=== PATIENT | female | born 1980 | race Caucasian/White ===

== ENCOUNTER 2019-04-30 12:11 | Inpatient (IN) | payer BC, MEDICAID ==
[~2019-04-30] VITALS: Ht 170.2 cm; Wt 82.3 kg
[2019-05-01] VITALS (42 sets, daily range): BP systolic 96–144; BP diastolic 54–94; PULSE 57–105; TEMP 97.9–98.9
--- NOTE | 2019-05-01 07:35 | NUR ---
Patient ambulates to LR5 with spouse, changed into gown, FHR/TOCO moniotors placed and explained. Patient denies any regular contractions/leaking of fluid/vaginal bleeding/decreased movement. Plan of care discussed and questions answered. 0745: IV started in left upper arm, blood obtained and to lab, LR infusing. Assessment/consents/ packet gone over and done. 0754: Pitocin induction discussed and patient agrees to plan. Pitocin started at 2mU per protocol.
[2019-05-01] MEDS ORDERED: PRENATAL TABLET PO (08:02)
[2019-05-01] MEDS ORDERED: PEPCID 20MG TAB20 MG PO (08:03)
[2019-05-01] MEDS ORDERED: TUMS ULTRA ST1000 MG PO (08:03)
[2019-05-01 08:39] LABS: BASO % 0.3 % (0.0-2.0); EOS # 0.2 (0.0-0.7); EOS % 2.8 % (0-4.0); GRAN % 65.2 % (42.2-75.2); HEMOGLOBIN 11.4 g/dl (12.5-16.0); LYMPH # 1.5 (1.2-3.4); LYMPH % 19.3 % (20.0-51.0); MEAN CELL VOLUME 86 fl (80.0-100.0); MEAN CORPUSCULAR HEMOGLOBIN 29 pg (27.0-31.0); MEAN CORPUSCULAR HGB CONC 33 g/dl (33.0-37.0); MONO # 0.9 (0.1-0.6); MONO % 11.6 % (1.7-9.3); PLATELET COUNT 202 K/mm3 (130-400); REDCELL DISTRIBUTION WIDTH-CV 13.9 % (11.5-14.5)
[2019-05-01 08:50] LABS: HEMATOCRIT 34.3 % (37.0-47.0)
--- NOTE | 2019-05-01 09:18 | NUR ---
Dr. Karimi at bedside assessing patient and FHR strip. 0919: SVE per physician /2 with AROM of clear fluid at this time. Plan of care discussed and patient can have epidrual when needed. Patient requesting epidural. 0946: Ciro HERNANDEZ called and notified. 1018: Patient sitting up on bed and Ciro HERNANDEZ at bedside. 1026: Test dose given and patient tolerates well. 1030: Patient repositioned and safety precations and plan of care discussed.
--- NOTE | 2019-05-01 12:35 | NUR ---
Dr. Karimi at nurses station at [facility] FHR strip. Dr. Karimi notified that a lesion/wart noted on left inner labia. Dr. Karimi gives no new orders-see physician notification. 1300: Dr. Karimi at bedside and assessing patient and FHR strip. SVE per physician /1.
--- NOTE | 2019-05-01 15:15 | NUR ---
FHR baseline 145bpm and late subtle recurrent lates noted. Patient wedged left. 1545: FHR baseline 135bpm and recurrent variables occuring with every contraction. Patient sitting up. 1548: SVE-/-1 1553: Dr. Karimi called and updated on SVE and FHR strip. See physician notification. Recurrent variable decelerations continue, patient right lateral with left leg resting in stirrup. 1620: FHR [id number] and recurrent early/late decerlations decreasing to 80-90bpm for approx. 40-60seconds. SVE-/0 Dr. Karimi called and notified. Orders to give LR bolus and oxygen at this time. 1621: Oxygen via mask on patient at 10ml/hr and LR bolus infusing. Patient wedged left.
--- NOTE | 2019-05-01 16:28 | NUR ---
FHR baseline 135-140bpm and late decelerations noted. 1629: Pitocin turned down to 10mU per Dr. Botello orders. Patient continues to wear oxygen mask at this time. 1640: SVE-10/100/+1 and having a lot of pain on right side. Nahomi Flor CRNA called and notified. 164: Dr. Karimi updated and on the way for delivery. 1645: Kvng HERNANDEZ at bedside dosing epidural. Huerta catheter removed and patient tolerates well. 165: Dr. Karimi at bedside and patient prepped for vaginal delivery and bed taken apart. Pericare done. 165: Patient begins to push per Dr. Botello orders. 165: Spontaneous vaginal delivery of viable female-head followed by body. Infant bulb syringed and to patients Cheri simpson RN assumes care of . Cord clamped by physician and cut by grandmother. Cord blood obtained. 165: Spontaneous delivery of placenta and pitocin bolus started at 333mU per protol. Perineum intact and fundal massage done/firm/bleeding WNL. Pericare done and bed put back together. Patient repositioned and ice pack to perineum. Plan of care discussed.
--- NOTE | 2019-05-01 19:00 | NUR ---
1814- Bedside report from A[place]ANDRIA Stark. 1899- Patient is incontinent of urine during fundal checks. Fundus D1/Midline. Bleeding WNL. Pericare provided. Linens changed. 1999- Patient is again incontinent of urine during fundal check. Patient able to pivot to wheelchair and transferred to restroom to void. Patient voided without difficulty. Pericare provided. Gown changed. Patient transferred to PP room via wheelchair.
[2019-05-02 02:30] VITALS: BP 122/74; PULSE 82; TEMP 99
[2019-05-02 05:00] VITALS: BP 125/82; PULSE 96; TEMP 99
[2019-05-02] MEDS ORDERED: MOTRIN 800800 MG/TAB PO (08:17)
[2019-05-02 09:00] VITALS: BP 113/73; PULSE 86; TEMP 98.9
--- NOTE | 2019-05-02 10:32 | NUR ---
Initial visit; Patient thanked Credit Card Clerk for offering congratulations and God's blessings to her family for the of their daughter. Credit Card Clerk thanked family for choosing [facility].
[2019-05-02 17:09] VITALS: BP 114/72; PULSE 73; TEMP 98.7
[2019-05-02 18:40] VITALS: BP 111/69; PULSE 73; TEMP 98.5
[2019-05-03 08:00] VITALS: BP 103/60; PULSE 77; TEMP 98.3
== END 2019-05-03 12:10 | disposition home or self-care (01) | DRG 807 ==
LOC: LDR 05-01 07:23 → OB 05-01 07:23 → LDR 05-01 12:11 → OB 05-01 20:00
PROVIDERS: ADMIT Obstetrics & Gynecology
PROC: 10E0XZZ Delivery of Products of Conception, External Approach (ICD-10-PCS; principal; 2019-05-01)
PROC: 10907ZC Drainage of Amniotic Fluid, Therapeutic from Products of Conception, Via Natural or Artificial Opening (ICD-10-PCS; 2019-05-01)
DX: O99.02 Anemia complicating childbirth (principal); Z37.0 Single live birth; Z3A.39 39 weeks gestation of pregnancy; O69.81X0 Labor and delivery complicated by cord around neck, without compression, not applicable or unspecified
CPT/HCPCS: J2590; J7120